=== PATIENT | female | born 1985 | race Hispanic/Latino ===

== ENCOUNTER 2017-09-14 01:43 | Inpatient (IN) | payer OTHER ==
[~2017-09-14] VITALS: Ht 165.1 cm; Wt 83.9 kg
[2017-09-15 05:11] LABS: ABSOLUTE BASOPHIL COUNT 0 /CUMM (0.0-0.2); ABSOLUTE EOSINOPHIL COUNT 0.1 /CUMM (0.0-0.7); ABSOLUTE GRANULOCYTE CT 7.6 /CUMM (1.4-6.5); ABSOLUTE LYMPH COUNT 1.9 /CUMM (1.2-3.4); ABSOLUTE MONOCYTE COUNT 0.9 /CUMM (0.10-0.60); BASOPHIL % 0.5 % (0.0-2.0); EOSINOPHIL % 0.9 % (0-5); GRANULOCYTE % 72.4 % (42.2-75.2); HEMATOCRIT 29.1 % (37-47); MEAN CORPUSCULAR HGB 24.8 PG (27.0-31.0); MEAN CORPUSCULAR HGB CONC 32.4 G/DL (33.0-37.0); MEAN CORPUSCULAR VOLUME 76.7 FL (81.0-99.0); MEAN PLATELET VOLUME 9.8 FL (7.4-10.4); PLATELET COUNT 193 /CUMM (130-400); RBC DISTRIBUTION WIDTH 20.3 % (11.5-14.5); WHITE BLOOD CELL COUNT 10.6 /CUMM (4.8-10.8)
--- NOTE | 2017-09-15 10:06 | History & Physical Pre-Op ---
General Information and HPI MD Statement: I have seen and personally examined RACHEL LEIVA and documented this H&P. The patient is a 31 year old F who presented with a patient stated chief complaint ofSROM []. Source of Information: patient, old records History of Present Illness: 31-year-old 2 para 1001 at 39 weeks gestation presents complaining of contractions at 1 cm during labor eval patient rupture membranes clear fluid. Patient has been highly motivated for trial of labor from Dr. Hunt office. 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 Neurologist. Patient has an elevated protein Ratio she has gestational diabetes her current glucose is 82. Patient has contractions every 2-5 minutes apart I have discussed the risks of rupture uterus patient is highly motivated for trial of labor we will watch her closely. Allergies/Medications Allergies: Coded Allergies: nickel (Intermediate, HIVES 09/15/17) sulfamethoxazole (From BACTRIM) (Intermediate, HIVES 09/15/17) trimethoprim (From BACTRIM) (Intermediate, HIVES 09/15/17) Past History Surgical History Pertinent Surgical History: Past Family/Social History Psychosocial History Smoking Status: Never Smoked Review of Systems Review of Systems: -13 point review of systems as stated in the HPI Exam & Diagnostic Data Last 24 Hrs of Vital Signs/I&O Intake & Output 09/15 1600 / 0800 / 0000 Intake Total Output Total Balance Patient 185 lb Weight Physical Exam: Pleasant black female HEENT anicteric Lungs clear Abdomen soft estimated weight 3900 g Pelvic is 5-6 cm 80% 0 vertex clear fluid noted anterior soft Extremities +1 edema Assessment/Plan Assessment/Plan: Assessment is term for trial of labor with proteinuria related to glomerulonephritis plan is for observation for a vaginal delivery antibiotics for group B strep ampicillin As Ranked By This Provider Problem List: 1.
--- NOTE | 2017-09-15 16:05 | PN- Obstetrical ---
Subjective Subjective: NO COMPLAINTS Objective Last 24 Hrs of Vital Signs/I&O Intake & Output 09/15 1600 09/15 0800 09/15 0000 Intake Total Output Total Balance Patient 185 lb Weight Physical Exam: PE THIN BF IN NAD ABD SOFT NT EXT +1 EDEMA Obstetric Exam Dilation (cm): 6 Effacement (%): 90 Station: 0 Membranes: SROM Fluid: clear Multiple Gestation? No Contractions: Q 6 MINUTES Assessment/Plan Assessment/Plan ASSESS TERMPREGNANCY PLAN CONT PITOCIN
--- NOTE | 2017-09-16 03:28 | Labor & Delivery Summary ---
Delivery Summary Vaginal Delivery: Vaginal: vertex Episiotomy/Lacerations: Episiotomy/Lacerations: none Placenta: Placenta: spontanteous, normal, 3 vessel Anesthesia: block Additional Comments: OVER INTACT PERINEUM OF VIABLE FEMALE SUCTIONED WITH BULB. THREE VESSEL CORD .PLACENTA BY CCT INACT O+.UTERINE INCISION INTACT AFTER DELIVERY.
[2017-09-17 08:01] LABS: ABSOLUTE BASOPHIL COUNT 0 /CUMM (0.0-0.2); ABSOLUTE EOSINOPHIL COUNT 0.2 /CUMM (0.0-0.7); ABSOLUTE LYMPH COUNT 1.8 /CUMM (1.2-3.4); ABSOLUTE MONOCYTE COUNT 0.9 /CUMM (0.10-0.60); BASOPHIL % 0.4 % (0.0-2.0); HEMATOCRIT 25.3 % (37-47); MEAN CORPUSCULAR HGB 24.9 PG (27.0-31.0); MEAN CORPUSCULAR VOLUME 77.8 FL (81.0-99.0); MEAN PLATELET VOLUME 10.1 FL (7.4-10.4); PLATELET COUNT 179 /CUMM (130-400); RBC DISTRIBUTION WIDTH 19.4 % (11.5-14.5); RED BLOOD CELL CT 3.26 /CUMM (4.20-5.40)
--- NOTE | 2017-09-17 10:30 | PN- OBGYN ---
Surgical Brief Attending Note Brief Attending Note: Seen and evaluated Reviewed chart for history and labs regarding her renal disease States starting to breast feed without issue States uterine cramps are improved Denies leg pain No headaches No visual changes AVSS No resp distress Abdomen soft and fundus firm Extremity. No homans and no edema Labs. 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 1) Anemia. Discussed supplementation. She has and iron at home. 2) Renal disease. Renal function based on last creatinine is good. She doesnt have a follow up appt with Nephrology so advised to make one for the next 2-4 weeks. Symptoms to observe would be worsening swelling/dyspnea. No findings of clinical preeclampsia. 3) VTE prophylaxis. At risk given and nephrosis but in my opinion ambulation should be sufficient as was vaginal . 4) Measles non immune. Will discuss MMR vaccine prior to discharge. 5) Pain controlled on current medication. 6) Breast feeding benefits reviewed. Nursing care for support and continued education on same. 7) Contraception. She expressed interest in the Nexplanon. That may be placed at 6 weeks. 8) DC planning for 09/18/17
[2017-09-18] MEDS ORDERED: IBUPROFEN800 M1 PO (07:42)
== END 2017-09-18 10:40 | DRG 775 ==
LOC: CBCO 01:43 → GNO 09-15 04:21
PROVIDERS: Specialist
PROC: 10D07Z6 Extraction of Products of Conception, Vacuum, Via Natural or Artificial Opening (ICD-10-PCS; principal; 2017-09-16)
DX: O34.211 Maternal care for low transverse scar from previous cesarean delivery (principal); N85.8 Other specified noninflammatory disorders of uterus; Z3A.39 39 weeks gestation of pregnancy; Z37.0 Single live birth; Z88.1 Allergy status to other antibiotic agents; O99.824 Streptococcus B carrier state complicating childbirth
CPT/HCPCS: GNOP; GNOS; 36415; 81001; 82570; 84112; 87086; J0290; J2210; J7120